=== PATIENT | female | born 1960 | race Caucasian/White ===

== ENCOUNTER 2017-06-20 20:17 | Observation (INO) ==
[2017-06-20 21:14] LABS: Basophils # 0.1 K/mcL (0.0-0.2); Basophils % 0.5 %; Eosinophils # 0.1 K/mcL (0.0-0.6); Eosinophils % 0.5 %; Hematocrit 42.8 % (35.3-44.9); Hemoglobin 14.2 g/dL (11.5-15.4); Immature Granulocytes % 0.2 % (0-4); Lymphocytes # 1.8 K/mcL (0.6-4.6); Lymphocytes % 13.9 %; Mean Corpuscular HGB Conc 33.2 g/dL (31.6-35.5); Mean Corpuscular Hemoglobin 29.8 pg (28.0-33.3); Mean Corpuscular Volume 89.7 fL (83.0-100.0); Mean Platelet Volume 9.9 fL (9.4-12.4); Monocytes # 0.7 K/mcL (0.0-1.3); Monocytes % 5.5 %; Neutrophils # 10.2 K/mcL (1.6-8.9); Platelet Count 221 K/mcL (140-400); Red Blood Count 4.77 M/mcL (3.82-4.97); Red Cell Distribution Width 12.8 % (11.5-14.5); Segmented Neutrophils % 79.4 %
[2017-06-20 21:26] LABS: BUN/Creatinine Ratio 18 (6-26); Blood Urea Nitrogen 16 mg/dL (7-20); Calcium 9.7 mg/dL (8.6-10.8); Carbon Dioxide 27 mEq/L (19-29); Chloride 106 mEq/L (98-109); Glucose 120 mg/dL (70-99); Osmolality,Calculated 294 (280-300); Potassium 3.9 mEq/L (3.5-4.5); Sodium 141 mEq/L (136-145); eGFR For African Americans > 60 (> 60); eGFR For Non-African Americans > 60 (> 60)
--- NOTE | 2017-06-20 23:46 | Emergency Department Note ---
Disposition Clinical Impression: Pre-syncope Disposition: Admitted As Inpatient Condition: Good Referrals: NONE,PCP [Primary Care Provider] - Forms: ED Satisfaction Letter Time of Disposition: 04:01 Dizziness HPI - General Chief Complaint: ED Dizziness Stated Complaint: dizziness/lightheaded Time Seen by Provider: 06/20/17 20:51 Source: patient Limitations: no limitations Nursing Notes Reviewed: Yes Vital Signs Reviewed: Yes - History of Present Illness Pt Subjective Complaint: lightheadedness Onset (ago): hour(s) Time: 15:00 Timing: sudden onset Description: lightheadedness (similar to standing up too fast) History of similar episodes: No History of trauma: No Improves with: nothing Worsens with: nothing Associated symptoms: Reports: chills (few hours later), vision changes (blurry vision lasting 20min started few hours later), palpitations (few hours later). Denies: ataxia, chest pain, confusion, diaphoresis, fever, rash, shortness of breath, weakness - Related Data Allergies Allergy/AdvReac Type Severity Reaction Status Date / Time No Known Allergies Allergy Verified 06/20/17 20:21 All systems ED: reviewed and negative except as stated. Constitutional: Denies: fever, chills Eyes: Reports: as per HPI. Denies: eye discharge ENT ED: Denies: throat pain Cardiovascular: Reports: as per HPI. Denies: dyspnea on exertion, syncope Respiratory: Reports: as per HPI. Denies: cough, wheezes Gastrointestinal: Denies: abdominal pain, nausea, vomiting, diarrhea, constipation Genitourinary: Denies: dysuria Musculoskeletal: Denies: back pain Integumentary: Denies: rash Neurological: Reports: headache Psychiatric: Denies: anxiety Endocrine: Denies: fatigue Hematological/Lymphatic: Denies: easy bleeding, lymphadenopathy Allergic/Immunologic: Denies: facial swelling Past Medical History - Past Medical History Medical history: Reports: no medical history Psychiatric history: Reports: no psych history - Social History Smoking Status: Never smoker Smokeless Tobacco Status: No Alcohol use: Reports: none Drug use: Reports: none Physical Exam - General Limitations: no limitations General appearance: alert, in no apparent distress - Head Head exam: normocephalic - Eye Eye exam: Present: EOMI. Absent: conjunctival injection - ENT ENT exam: normal oropharynx, mucous membranes moist - Expanded ENT Exam External ear exam: Present: normal external inspection. Absent: mastoid tenderness TM/Canal: Hemotympanum: Negative, Erythema: Negative, Bulging: Negative, Effusion: Negative, Perforation: Negative, Loss of Landmarks: Negative, Foreign body: Negative, Cerumen impaction: Left TM, Canal discharge: Negative, Canal tenderness: Negative Nose exam: negative: rhinorrhea Teeth exam: Present: normal inspection Throat exam: Present: normal inspection - Neck Neck exam: Present: normal inspection, full ROM - Chest Chest inspection: Present: normal inspection. Absent: symmetric chest wall rise - Respiratory Respiratory exam: Present: normal lung sounds bilaterally. Absent: respiratory distress - Cardiovascular Cardiovascular exam: Present: regular rate, normal rhythm, normal heart sounds - Abdominal Exam Abdominal exam: Present: soft, Non-Tender. Absent: tenderness - Extremities Exam Extremities exam: Present: normal inspection, full ROM, normal capillary refill - Back Exam Back exam: Present: full ROM - Neurological Exam Neurological exam: Present: alert, oriented X3, CN II-XII intact, normal gait, motor sensory deficit, reflexes normal - Expanded Neurological Exam Patient oriented to: Present: person, place, time Speech: Present: fluid speech Cranial nerves: EOM function (II, III, IV, ): Normal, facial sensation (V): Normal, facial palsy (VII): Normal, gag reflex (IX): Normal, spinal accessory function (XI): Normal, tongue deviation (XII): Normal Cerebellar function: finger to nose: Normal, heel to pedraza: Normal Cerebellar function: normal gait, Romberg normal Motor strength - LUE: 5/5 Motor strength - RUE: 5/5 Motor strength - LLE: 5/5 Motor strength - RLE: 5/5 Sensory exam upper extremity: light touch: Normal, pin prick: Normal Sensory exam lower extremity: light touch: Normal, pin prick: Normal Coma Scale Eye Opening: Spontaneous Coma Scale Motor Response: Obeys Commands Coma Scale Verbal Response: Oriented Coma Scale Total: 15 - Psychiatric Psychiatric exam: Present: normal affect, normal mood - Skin Skin exam: Present: warm, dry, intact. Absent: rash, cyanosis, diaphoresis Course Course Narrative: Patient is a 57-year-old female presents with some lightheadedness. Nursing notes indicate complaint of dizziness. Patient describes symptoms as lightheadedness sensation of as if he wanting to pass out, or if he stood up too quickly. She denies any disequilibrium, balance, room spinning, vertigo. 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 Symptoms continued when she got home. At home she started getting chills, felt a fast heart rate, and also had blurry vision which lasted approximately 20 minutes. She states her symptoms had continued until approximately one hour prior to entering her exam room which would have been while she was waiting for room in the waiting room in the department, an approximate duration 8 hours. She does mention that she has a headache gradual in onset that she states is from stress, similar to previous headaches, started while waiting for room. She states that her symptoms did not worsen with movement of her head, she denies any tinnitus, weakness, numbness, tingling, paresis, nausea, vomiting, slurred speech, facial changes. She is coming by her son who states that she has been acting normal. She did have an EKG, chest x-ray and initial lab work ordered as protocol orders prior to her exam room. These appear to be unremarkable. Patient seen and examined. No gross focal neurological deficits. No dizzyness. No nystagmus. Normal gait. No concerning signs for stroke or TIA. Alert and oriented 3. - Reevaluation(s) Reevaluation #1: Workup unremarkable. I did discuss patient with attending Dr. Dial, who agreed to see patient, and agreed with admission for presyncope with palpitations, cardio evaluation, and/or observation. Time: 00:58 Reevaluation #2: Pt discussed with hospitalist, Dr. Suazo, who had requested CT head non contrast , and for a call back with the results, to discuss patient further prior to accepting patient. This was discussed with patient who at this time has declined CT head. Time: 02:31 Reevaluation #3: Discussed patient with Dr. Suazo again, specifically patient's declining head CT. He reemphasizes importance of head CT for duration of neurological symptoms , or alternatively he feels patient can not be accepted. I Did speak to patient regarding their recommendations as did Dr. Dial. At this time patient is agreeable for CT scan. We will await results of CT, and per request of hospitalists contact him again for admission request. Time: 03:07 Additional Reevaluation(s): @03:54 I discussed results of CT of head with Dr. Suazo, as well as recreation for admission for presyncope. He accepted the patient. Vital Signs Temperature 97.9 F 06/20/17 20:19 Pulse Rate 77 06/20/17 20:19 Respiratory Rate 18 06/20/17 20:19 Blood Pressure 184/90 06/20/17 20:19 O2 Sat by Pulse Oximetry 97 06/20/17 20:19 Temperature 97.9 F 06/20/17 20:19 Pulse Rate 69 06/21/17 03:45 Respiratory Rate 16 06/21/17 03:45 Blood Pressure 157/83 06/21/17 03:45 O2 Sat by Pulse Oximetry 98 06/21/17 03:45 Oxygen Delivery Oxygen Delivery Room Air Dizziness - Lab Data Lab results reviewed: Yes I reviewed the patient's lab results. Result diagrams: 06/20/17 21:07 06/20/17 21:07 Lab Results 06/20/17 06/20/17 06/20/17 Range/Units 21:07 21:07 21:07 WBC 12.8 H (4.3-11.1) K/mcL RBC 4.77 (3.82-4.97) M/mcL Hgb 14.2 (11.5-15.4) g/dL Hct 42.8 (35.3-44.9) % MCV 89.7 (83.0-100.0) fL MCH 29.8 (28.0-33.3) pg MCHC 33.2 (31.6-35.5) g/dL RDW 12.8 (11.5-14.5) % Plt Count 221 (140-400) K/mcL MPV 9.9 (9.4-12.4) fL Immature Gran % 0.2 (0-4) % Seg Neutrophils % 79.4 % Lymphocytes % 13.9 % Monocytes % 5.5 % Eosinophils % 0.5 % Basophils % 0.5 % Neutrophils # 10.2 H (1.6-8.9) K/mcL Lymphocytes # 1.8 (0.6-4.6) K/mcL Monocytes # 0.7 (0.0-1.3) K/mcL Eosinophils # 0.1 (0.0-0.6) K/mcL Basophils # 0.1 (0.0-0.2) K/mcL Sodium 141 (136-145) mEq/L Potassium 3.9 (3.5-4.5) mEq/L Chloride 106 (98-109) mEq/L Carbon Dioxide 27 (19-29) mEq/L BUN 16 (7-20) mg/dL Creatinine 0.87 (0.57-1.11) mg/dL Est GFR ( Amer) > 60 (> 60) Est GFR (Non-Af Amer) > 60 (> 60) BUN/Creatinine Ratio 18 (6-26) Glucose 120 H (70-99) mg/dL Calculated Osmolality 294 (280-300) Calcium 9.7 (8.6-10.8) mg/dL Troponin I 0.00 (0-0.03) ng/mL TSH 6.264 H (0.350-4.840) mcIU/mL Urine Color (Yellow) Urine Clarity (Clear) Urine pH (5.0-8.0) pH Units Ur Specific [place] (1.010-1.025) Urine Protein (Neg-Trace) mg/dL Urine Glucose (UA) (Normal) mg/dL Urine Ketones (Negative) mg/dL Urine Blood (Negative) Urine Nitrite (Negative) Urine Bilirubin (Negative) Urine Urobilinogen (Normal) mg/dL Ur Leukocyte Esterase (Negative) Ur Culture Indicated? (NO) 06/21/17 Range/Units 00:33 WBC (4.3-11.1) K/mcL RBC (3.82-4.97) M/mcL Hgb (11.5-15.4) g/dL Hct (35.3-44.9) % MCV (83.0-100.0) fL MCH (28.0-33.3) pg MCHC (31.6-35.5) g/dL RDW (11.5-14.5) % Plt Count (140-400) K/mcL MPV (9.4-12.4) fL Immature Gran % (0-4) % Seg Neutrophils % % Lymphocytes % % Monocytes % % Eosinophils % % Basophils % % Neutrophils # (1.6-8.9) K/mcL Lymphocytes # (0.6-4.6) K/mcL Monocytes # (0.0-1.3) K/mcL Eosinophils # (0.0-0.6) K/mcL Basophils # (0.0-0.2) K/mcL Sodium (136-145) mEq/L Potassium (3.5-4.5) mEq/L Chloride (98-109) mEq/L Carbon Dioxide (19-29) mEq/L BUN (7-20) mg/dL Creatinine (0.57-1.11) mg/dL Est GFR ( Amer) (> 60) Est GFR (Non-Af Amer) (> 60) BUN/Creatinine Ratio (6-26) Glucose (70-99) mg/dL Calculated Osmolality (280-300) Calcium (8.6-10.8) mg/dL Troponin I (0-0.03) ng/mL TSH (0.350-4.840) mcIU/mL Urine Color Yellow (Yellow) Urine Clarity Clear (Clear) Urine pH 7.0 (5.0-8.0) pH Units Ur Specific [place] 1.014 (1.010-1.025) Urine Protein Negative (Neg-Trace) mg/dL Urine Glucose (UA) Normal (Normal) mg/dL Urine Ketones Negative (Negative) mg/dL Urine Blood Negative (Negative) Urine Nitrite Negative (Negative) Urine Bilirubin Negative (Negative) Urine Urobilinogen Normal (Normal) mg/dL Ur Leukocyte Esterase Negative (Negative) Ur Culture Indicated? NO (NO) - Radiology Data Radiology results reviewed: Yes I reviewed the patient's radiology results. - EKG Data EKG attestation: Yes I reviewed and interpreted this EKG. EKG results narrative: Sinus rhythm with sinus arrhythmia, ventricular rate 65, DC interval 157, QRS duration 96, QT/QTc 384/395, significant ST depression or elevation Attestation Statement - Attestation Attestation: I, Ferny Dial DO have provided [id number] time during the care of this patient. Detailed review the presentation, symptoms, medical history were discussed and reviewed with the mid-level provider Raúl Almeida PA-C/[employer]. Medical intervention labs and imaging studies were reviewed in detail. See full documentation of physical exam and course of care in the mid-level provider 's note. I agree with the determined course of care, medical interventio,n and disposition put forth by the mid-level provider. See below documentation for changes or alterations in documentation. 57-year-old female presents emergency room for near syncopal event today. She denies any headache or proceeding symptoms. She has a history of intermittent palpitations of unknown etiology. Denies any fevers or chills nausea vomiting or diarrhea. Denies any headache or vision change at this time. Currently she has no symptoms and does not have any dizziness or resting on the bed. Neurologic evaluation is completely benign. Head is atraumatic pupils are equal round and reactive intraocular muscles are intact. She has no reproducible nystagmus or dizziness on examination. Patient has stable laboratory workup including EKG and imaging. Patient will be admitted for near syncopal event. Patient is resting comfortable. See detailed documentation of physical exam, medical intervention, medical decision-making and disposition and the resident physician's note
[2017-06-21 01:07] LABS: Bilirubin,Urine Negative (Negative); Blood,Urine Negative (Negative); Clarity,Urine Clear (Clear); Color,Urine Yellow (Yellow); Glucose,Urine (UA) Normal (Normal); Ketones,Urine Negative (Negative); Leukocyte Esterase,Urine Negative (Negative); Nitrite,Urine Negative (Negative); Protein,Urine Negative (Neg-Trace); Specific Gravity,Urine 1.014 (1.010-1.025); Urobilinogen,Urine Normal (Normal)
[2017-06-21] MEDS ORDERED: Ibuprofen 600 MG TABLET PO ONE (01:47)
[2017-06-21 02:01] LABS: Thyroid Stimulating Hormone 6.264 mcIU/mL (0.350-4.840)
--- NOTE | 2017-06-21 08:29 | Internal Med History&Physical ---
Date of Encounter: 06/21/17 Time of Encounter: 08:10 Assessment and Plan (1) Pre-syncope Current visit: Yes Status: Acute Currently resolved. 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 Labs and EKG CT head showed no acute abnormality. Monitor vitals closely and start Telemetry monitoring. Consider MRI brain if symptoms persist or recur. (2) Essential hypertension Current visit: Yes Status: Chronic likely has ?undiagnosed HTN. BP is controlled with no meds; will start low dose Norvasc and monitor closely. Internal Medicine - H&P: HPI Chief complaint: Dizziness Admitted From: Emergency Dept Plans for Post Hospital Care: Home History of present illness: Ms. Santos is a 57 year old female with no significant past medical history, presents with c/o- "head feeling fuzzy". She say it is difficult to explain but she just did not feel right in her head. No overt confusion or disorientation per patient; she does have dizziness and near syncope that began about 4PM yesterday and last ed until about 10PM, while she was in the ER. Her symptoms spontaneously resolved. No associated vomiting, chest pain, cough, dyspnea, urinary complaints. No fever/chills. SHe did have some nausea and 5-6 episodes of watery diarrhea last evening, which was self-limited. No sick contacts at home or work, she does work as a emotional support teacher. No focal weakness, paresthesias, dysphagia, slurred speech. Past Med Surg Social Fam HX - Past Medical History Medical history: no medical history Psychiatric history: no psych history - Past Surgical History Surgical History: appendectomy, other (tonsillectomy) - Social History Smoking Status: Never smoker Smokeless Tobacco Status: No Alcohol use: none Drug use: none Occupational status: employed Current living situation: Home, With Family Activity Level: Independent ambulation Recent Out of Country Travel Within the Last 8 Weeks: No Exposure or Possible Exposure to Illness During Travel: No - Family History Mother Hx Family Cardiac Disorders: Yes (HTN, HLD, DC) Hx Family Cancer: Yes (Lung) Father Hx Family Cancer: Yes (Kidney carcinoma) Internal Medicine - H&P: Meds No Known Home Drugs 06/21/17 [History] 3 Allergy/AdvReac Type Severity Reaction Status Date / Time No Known Allergies Allergy Verified 06/20/17 20:21 All Systems PM: A 10-system review of systems was performed and is negative for pertinent findings except as documented above in the HPI. - Constitutional Constitutional: weakness, no chills, no fever(s), no night sweats - EENT Eyes: no change in vision, no discharge, no pain, no photophobia Ears: no ear discharge, no ear pain, no tinnitus Nose, mouth and throat: no dysphagia, no nasal discharge, no neck pain, no sore throat - Cardiovascular Cardiovascular ROS IM: lightheadedness, no chest pain, no diaphoresis, no dyspnea, no palpitations, no syncope - Respiratory Respiratory: no cough, no dyspnea, no wheezing, no excessive phlegm production - Gastrointestinal Gastrointestinal: diarrhea, no abdominal pain, no hematemesis, no hematochezia, no melena, no nausea, no vomiting - Genitourinary Genitourinary: no change in urinary stream, no dysuria, no flank pain, no hematuria - Musculoskeletal Musculoskeletal ROS IM: no numbness, no tingling - Integumentary Integumentary IM: no rash, no unusual bruising - Neurological Neurological ROS: no confusion, no convulsions, no focal weakness, no numbness, no tingling, no tremor(s) - Hematologic/Lymphatic Hematologic/Lymphatic: no easy bruising - Constitutional Vitals: Temp Pulse Resp BP Pulse Ox 97.9 F 89 20 129/74 96 06/21/17 07:10 06/21/17 07:10 06/21/17 07:10 06/21/17 07:10 06/21/17 07:10 General appearance: Present: A&O X 3, answers questions appropriately - Respiratory Respiratory exam: Present: CTAB. Absent: accessory muscle use, rales, rhonchi, wheezes - Cardiovascular Cardiovascular exam: Present: RRR, +S1, +S2. Absent: diastolic murmur, gallop, rubs, systolic murmur - GI/Abdominal GI/Abdominal exam: Present: normal bowel sounds, soft, no peritoneal signs. Absent: distended, tenderness - Extremities Exam Extremities exam: Present: full ROM, warm, radial pulses palpable and symmetrical. Absent: calf tenderness, cyanotic, pedal edema - Neurological Exam Neurological exam: Present: CN II-XII intact, oriented X3, no focal deficits. Absent: pronater drift, facial droop, speech deficit - Skin Skin exam: Present: dry, intact Internal Med - H&P Results - Labs CBC & Chem 7: 06/20/17 21:07 06/20/17 21:07 - EKG Data -: EKG Interpreted by Myself EKG shows normal: sinus rhythm (sinus arrhythmia) Rate: normal (no ischemic changes)
[2017-06-21] MEDS: *HR* Heparin 5,000 UNIT/ML VIAL SQ SCH ×3 (08:48→23:21)
[2017-06-21] MEDS: amLODIPine 5 MG TABLET PO SCH (08:49)
[2017-06-21] MEDS: Acetaminophen 325 MG TABLET PO PRN (12:20)
--- NOTE | 2017-06-21 16:18 | Electrocardiograph Report ---
[place] [id number] Test Date: 2017-06-20 Pat Name: Katherine Santos Department: 102 Room: 3A35 Gender: F Hall Clerk: : 1960 Requested By: Vlad Rodriguez Order Number: [id number] Reading MD: Abelardo Chan Measurements Intervals [place] Rate: 65 P: 53 MT: 157 QRS: 47 QRSD: 96 T: 42 QT: 384 QTc: 395 Interpretive Statements SINUS RHYTHM WITH SINUS ARRHYTHMIA POSSIBLE RIGHT VENTRICULAR CONDUCTION DELAY MODERATE ST DEPRESSION Electronically Signed On 06-21-2017 16:16:42 EDT by Abelardo Chan
[2017-06-22] MEDS: Acetaminophen 325 MG TABLET PO PRN ×3 (03:46→21:38)
[2017-06-22 05:17] LABS: Basophils # 0.1 K/mcL (0.0-0.2); Basophils % 1.2 %; Eosinophils # 0.1 K/mcL (0.0-0.6); Eosinophils % 2.2 %; Hematocrit 40.5 % (35.3-44.9); Hemoglobin 13.5 g/dL (11.5-15.4); Immature Granulocytes % 0.2 % (0-4); Lymphocytes # 2.5 K/mcL (0.6-4.6); Lymphocytes % 42.1 %; Mean Corpuscular HGB Conc 33.3 g/dL (31.6-35.5); Mean Corpuscular Hemoglobin 29.4 pg (28.0-33.3); Mean Corpuscular Volume 88.2 fL (83.0-100.0); Mean Platelet Volume 10.3 fL (9.4-12.4); Monocytes # 0.4 K/mcL (0.0-1.3); Monocytes % 6.8 %; Neutrophils # 2.9 K/mcL (1.6-8.9); Platelet Count 213 K/mcL (140-400); Red Blood Count 4.59 M/mcL (3.82-4.97); Red Cell Distribution Width 13.1 % (11.5-14.5); Segmented Neutrophils % 47.5 %
[2017-06-22 05:40] LABS: BUN/Creatinine Ratio 17 (6-26); Blood Urea Nitrogen 14 mg/dL (7-20); Calcium 8.8 mg/dL (8.6-10.8); Carbon Dioxide 28 mEq/L (19-29); Chloride 106 mEq/L (98-109); Glucose 94 mg/dL (70-99); Osmolality,Calculated 292 (280-300); Potassium 3.8 mEq/L (3.5-4.5); Sodium 141 mEq/L (136-145); eGFR For African Americans > 60 (> 60); eGFR For Non-African Americans > 60 (> 60)
[2017-06-22] MEDS: *HR* Heparin 5,000 UNIT/ML VIAL SQ SCH ×4 (06:36→21:38)
[2017-06-22] MEDS: amLODIPine 5 MG TABLET PO SCH (06:54)
[2017-06-22] MEDS: Ondansetron 4 MG/2 ML VIAL IVP PRN ×2 (06:55→15:17)
[2017-06-22] MEDS ORDERED: *HR* Morphine 2 MG/ML SYRINGE IVP PRN (10:28)
[2017-06-22] MEDS: *HR* OxyCODONE/APAP 5/325 TABLET PO PRN (10:34)
--- NOTE | 2017-06-22 12:01 | Discharge Summary ---
Date of Encounter: 06/22/17 Time of Encounter: 11:56 - Discharge Diagnosis (1) Pre-syncope Priority: Primary Status: Acute (2) Essential hypertension Priority: Primary Status: Chronic (3) Headache Priority: Secondary Status: Acute Qualifiers: Headache type: unspecified Headache chronicity pattern: acute headache Qualified Code(s): R51 - Headache - Discharge Medications Prescriptions: amLODIPine [Norvasc] 5 mg PO DAILY #30 tablet Naproxen 500 mg PO BID PRN #20 tablet PRN Reason: Headache SUMAtriptan succinate [Imitrex] 25 mg PO DAILY PRN #7 tablet PRN Reason: Headache Home Medications: Naproxen 500 mg PO BID PRN #20 tablet 06/22/17 [Rx] SUMAtriptan succinate [Imitrex] 25 mg PO DAILY PRN #7 tablet 06/22/17 [Rx] amLODIPine [Norvasc] 5 mg PO DAILY #30 tablet 06/22/17 [Rx] Allergies/Adverse Reactions: 3 Allergy/AdvReac Type Severity Reaction Status Date / Time No Known Allergies Allergy Verified 06/20/17 20:21 Date of admission: 06/21/17 03:59 Primary care physician: PCP NONE - Patient Status Disposition: Home, Self-Care Condition: Good Overall status at discharge: patient is back to baseline - Discharge Instructions Follow Up With: NONE,PCP [Primary Care Provider] - - Diet and Activity Activity: increase activity as tolerated Diet: low salt diet Hospital course: Ms. Santos is a 57 year old female with no significant past medical history, presents with c/o- "head feeling fuzzy". She say it is difficult to explain but she just did not feel right in her head. No overt confusion or disorientation per patient; she does have dizziness and near syncope that began about 4PM yesterday and last ed until about 10PM, while she was in the ER. Her symptoms spontaneously resolved. No associated vomiting, chest pain, cough, dyspnea, urinary complaints. No fever/chills. She did have some nausea and 5-6 episodes of watery diarrhea 2 days ago, which was self-resolved. She was admitted in the hospital and placed her on radiation monitor. She did have mild EKG changes with ST depression in inferior leads and sinus arrythamia. 2 D Echo showed - Time Spent with Patient Total time spent providing and/or coordinating discharge services: - Constitutional Vitals: Temp Pulse Resp BP Pulse Ox 97.9 F 71 16 144/83 95 06/22/17 11:25 06/22/17 11:25 06/22/17 11:25 06/22/17 11:25 06/22/17 11:25 General appearance: Present: A&O X 3, answers questions appropriately - Head Head exam: Present: atraumatic, normal inspection - Neck Neck exam general surgery: Present: supple - Respiratory Respiratory exam: Present: CTAB. Absent: accessory muscle use, rales, rhonchi, wheezes - Cardiovascular Cardiovascular exam: Present: RRR, +S1, +S2. Absent: diastolic murmur, gallop, rubs, systolic murmur - GI/Abdominal GI/Abdominal exam: Present: normal bowel sounds, soft, no peritoneal signs. Absent: distended, tenderness - Extremities Exam Extremities exam: Present: warm, radial pulses palpable and symmetrical. Absent : calf tenderness, cyanotic, pedal edema - Neurological Exam Neurological exam: Present: alert, oriented X3 - Psychiatric Psychiatric exam: Present: normal affect, normal mood
--- NOTE | 2017-06-22 12:57 | Cardiology Consult Note ---
<Oskar Azul - Last Filed: 06/22/17 12:49> Date of Encounter: 06/22/17 Time of Encounter: 12:49 Assessment and Plan (1) Abnormal EKG Current Visit: Yes Status: Acute EKG reviewed. Shows sinus arrhythmia. There is ST depression noted in the inferiolateral leads. She c/o ongoing dyspnea on exertion and brief episode of chest pain. Troponin negative. Cardiac risk factors include HTN, significant family history ( brother with PCI at age 44), and obesity. No previous cardiac work-up Discussed with Dr. Stern. Pharmacologic stress test is recommended for further evaluation. (2) Palpitations Current Visit: Yes Status: Acute C/o palpitations/ heart racing intermittently. 24 hour telemetry shows SR with PAC. Avg HR 66 bpm. Fastest HR was 101 bpm. Sinus tachycardia. No VT. No concerning arrhythmias seen. Recommend holter monitor at discharge. (3) Essential hypertension Current Visit: Yes Status: Chronic Uncontrolled hypertension. Recommend increasing norvasc to 10 mg daily. Low sodium diet. Discussion w patient/family: The assessment and plan as outlined above was discussed with the patient and/or family members who expressed understanding and agreement. All questions were answered. Thank you for involving us in the care of your patient. Please call with any questions. History of Present Illness Consult date: 06/22/17 Requesting physician: Flores Beal Consult reason: Abnormal EKG Chief complaint: Headache, nausea, SOB, chest pain History of present illness: Ms. Santos is a 57 year old female with a past medical history of hypertension , hypothyroidism, and migraines who presents with the c/o feeling funny in her head, brief left sided sharp chest discomfort and nausea. She also c/o dyspnea on exertion for three weeks. Admits to intermittent palpitations . She sometimes feels her heart racing while lying in bed at night. Cardiology consulted for abnormal EKG. She was found to have sinus arrhythmia and inferior and lateral ST depression. There is no previous EKG to compare. B/p elevated up to 184/90. Troponin is negative. CT of the head showed no acute finding. She denies previous cardiac history or work-up. Past Med Surg Social Fam HX - Past Medical History Attestation: Yes The following information was validated with the patient. Medical history: hypertension, migraine, thyroid disease Psychiatric history: no psych history - Past Surgical History Surgical History: appendectomy, other (tonsillectomy) - Social History Smoking Status: Never smoker Smokeless Tobacco Status: No Alcohol use: none Drug use: none - Family History Mother Hx Family Cardiac Disorders: Yes (HTN, HLD, IL) Hx Family Cancer: Yes (Lung) Father Hx Family Cancer: Yes (Kidney carcinoma) Medications and Allergies Levothyroxine [Synthroid] 25 mcg PO 0630 #30 tablet 06/22/17 [Rx] Naproxen 500 mg PO BID PRN #20 tablet 06/22/17 [Rx] SUMAtriptan succinate [Imitrex] 25 mg PO DAILY PRN #7 tablet 06/22/17 [Rx] amLODIPine [Norvasc] 5 mg PO DAILY #30 tablet 06/22/17 [Rx] 3 Allergy/AdvReac Type Severity Reaction Status Date / Time No Known Allergies Allergy Verified 06/20/17 20:21 All Systems Review: A 10-system review of systems was performed and is negative for pertinent findings except as documented above in the HPI. Physical Examination Vital Signs, Last 4 Hours Temp Pulse Resp BP Pulse Ox 06/22/17 11:25 97.9 F 71 16 144/83 95 General: Conversant, No Apparent Distress HEENT: Atraumatic, Normocephaly, Mucus Membranes Moist Neck: No JVD, Normal carotid pulses Cardiac: Reg Rate and Rhythm, Normal S1 and S2, No Murmur Lungs: Normal Breath Sounds, No Wheeze, Rales, Rhonchi Neuro: Alert and responsive, No focal deficits noted Abdomen: Soft, Non-Tender Skin: No rashes noted on visualized skin Musculoskeletal: No Chest Wall Tenderness Extremities: No Clubbing, No Cyanosis, No Edema, Normal Pulses Results 06/22/17 04:15 06/22/17 04:15 Lab Results 06/22/17 06/22/17 04:15 04:15 WBC 6.0 D Hgb 13.5 Hct 40.5 Plt Count 213 Sodium 141 Potassium 3.8 Chloride 106 Carbon Dioxide 28 BUN 14 Creatinine 0.81 Glucose 94 Calcium 8.8 Magnesium 2.0 - EKG Interpretation EKG results cardiology: personally reviewed Consult Discharge Plan - Plan Referrals: NONE,PCP [Primary Care Provider] - Prescriptions: amLODIPine [Norvasc] 5 mg PO DAILY #30 tablet Levothyroxine [Synthroid] 25 mcg PO 0630 #30 tablet Naproxen 500 mg PO BID PRN #20 tablet PRN Reason: Headache SUMAtriptan succinate [Imitrex] 25 mg PO DAILY PRN #7 tablet PRN Reason: Headache <Thalia Stern - Last Filed: 06/22/17 13:24> Date of Encounter: 06/22/17 - Attending Attestation I have personally performed a face to face evaluation on this patient. I have reviewed and agree with the care plan. History and Exam by me shows: 57 YOF with strong family h/o CAD, presents with worsening RODRIGUES, EKG abnormalities (ST depressions inferolaterally) and palpitations. She describes rapid heart rate with lightheadedness, nausea but no Vominting or TLOC. She is anxious and currently is complaining of ongoing nausea and headach. CT head was unremarkable. Euvolemic on exam and unremarkable. With abnormal EKG and RODRIGUES worsening over last few weeks will proceed with chemical stress test and ECHO. Will also obtaine an event monitor as an OP for palpitations. Assessment and Plan Discussion w patient/family: The assessment and plan as outlined above was discussed with the patient and/or family members who expressed understanding and agreement. All questions were answered. Thank you for involving us in the care of your patient. Please call with any questions. History of Present Illness History of present illness: Ms. Santos is a 57 year old female All Systems Review: A 10-system review of systems was performed and is negative for pertinent findings except as documented above in the HPI. Physical Examination Vital Signs, Last 4 Hours Temp Pulse Resp BP Pulse Ox 06/22/17 11:25 97.9 F 71 16 144/83 95 Results 06/22/17 04:15 06/22/17 04:15 Lab Results 06/22/17 06/22/17 04:15 04:15 WBC 6.0 D Hgb 13.5 Hct 40.5 Plt Count 213 Sodium 141 Potassium 3.8 Chloride 106 Carbon Dioxide 28 BUN 14 Creatinine 0.81 Glucose 94 Calcium 8.8 Magnesium 2.0
[2017-06-22] MEDS ORDERED: amLODIPine 5 MG TABLET PO ONE (13:30)
--- NOTE | 2017-06-22 14:18 | Internal Med Progress Note ---
Date of Encounter: 06/22/17 Time of Encounter: 11:40 - Assessment and plan (1) Abnormal EKG Current Visit: Yes Status: Acute Assessment and plan: She did have abnormal EKG with moderate ST depression noticed in Inferior leads , which slightly improved with repeated EKG now She did mention about having sharp left sided chest pain for few minutes y/d her initial troponin was negative She remained CP free Ordered stat 2 D Echo Also consulted Cardiology who suggested stress test in AM cont on tele for now (2) Chest pain Current Visit: Yes Status: Acute Assessment and plan: see above Qualifiers: Qualified Code(s): R07.9 - Chest pain, unspecified (3) Essential hypertension Current Visit: Yes Status: Acute Assessment and plan: New onset fairly controlled will inc Norvasc to 10mg (4) Headache Current Visit: Yes Status: Acute Assessment and plan: concerned for migraine will give narcotics PRN also will give 1 dose Imitrex too Qualifiers: Headache type: unspecified Headache chronicity pattern: acute headache Qualified Code(s): R51 - Headache (5) Hypothyroidism (acquired) Current Visit: Yes Status: Acute Assessment and plan: TSH was slightly elevated Will f/u on free T4 and T3 levels Since pt has symptoms - lethargic / palpitations / lightheadedness, will start her on Levothyroxine 25mcg daily recommend to f/u with PCP as an out pt - Subjective Interval history: Ms. Santos is a 57 year old female with no significant past medical history, presents with c/o- "head feeling fuzzy". She say it is difficult to explain but she just did not feel right in her head. No overt confusion or disorientation per patient; she does have dizziness and near syncope that began about 4PM yesterday and lasted until about 10PM, while she was in the ER. Her symptoms spontaneously resolved. No associated vomiting, cough, dyspnea, urinary complaints. No fever/chills. She did have some nausea and 5-6 episodes of watery diarrhea last evening, which was self-limited. No sick contacts at home or work, she does work as a ec teacher. She also c/o some sharp chest pain too y/d. She also c/o on and off palpitations for a while and feeling lethargic from last one week. She denied any more dizziness, however she started having headache this morning - Constitutional Vitals: Temp Pulse Resp BP Pulse Ox 97.9 F 71 16 144/83 95 06/22/17 11:25 06/22/17 11:25 06/22/17 11:25 06/22/17 11:25 06/22/17 11:25 General appearance: Present: A&O X 3, answers questions appropriately - Head Head exam: Present: atraumatic, normal inspection - Respiratory Respiratory exam: Present: decreased breath sounds, wheezes. Absent: rales, respiratory distress, rhonchi - Cardiovascular Cardiovascular exam: Present: RRR, +S1, +S2. Absent: systolic murmur - GI/Abdominal GI/Abdominal exam: Present: normal bowel sounds, soft. Absent: rebound, rigid, tenderness - Extremities Exam Extremities exam: Absent: calf tenderness, pedal edema, tenderness - Back Exam Back exam: Absent: CVA tenderness (L), CVA tenderness (R) - Neurological Exam Neurological exam: Present: alert, CN II-XII intact, oriented X3, no focal deficits, strengths equal and symetr throughout. Absent: facial droop, speech deficit - Psychiatric Psychiatric exam: Present: normal affect, normal mood Internal Medicine: Result - Labs CBC & Chem 7: 06/22/17 04:15 06/22/17 04:15 Labs: Short CBC 06/22/17 Range/Units 04:15 WBC 6.0 D (4.3-11.1) K/mcL Hgb 13.5 (11.5-15.4) g/dL Hct 40.5 (35.3-44.9) % Plt Count 213 (140-400) K/mcL Neutrophils # 2.9 (1.6-8.9) K/mcL BMP 06/22/17 04:15 Sodium 141 Potassium 3.8 Chloride 106 Carbon Dioxide 28 BUN 14 Creatinine 0.81 Glucose 94 Calcium 8.8 Consult Discharge Plan - Plan Referrals: NONE,PCP [Primary Care Provider] - Prescriptions: amLODIPine [Norvasc] 5 mg PO DAILY #30 tablet Levothyroxine [Synthroid] 25 mcg PO 0630 #30 tablet Naproxen 500 mg PO BID PRN #20 tablet PRN Reason: Headache SUMAtriptan succinate [Imitrex] 25 mg PO DAILY PRN #7 tablet PRN Reason: Headache
[2017-06-22] MEDS ORDERED: SUMAtriptan succinate 50 MG TABLET PO ONE (14:34)
[2017-06-22] MEDS: Aspirin Enteric Coated 81 MG Tablet PO SCH (15:14)
[2017-06-22] MEDS ORDERED: 0.9 % Sodium Chloride 1,000 ML IVC SCH (15:15)
[2017-06-22 15:32] LABS: Chol/HDL Ratio 2.9 (0-4.9)
[2017-06-22 15:52] LABS: Triiodothyronine (T3) Free 2.5 pg/mL (1.71-3.71)
--- NOTE | 2017-06-22 16:54 | Electrocardiograph Report ---
[place] [address] Test Date: 2017-06-22 Pat Name: Katherine Santos Department: 115 Room: 3A35 Gender: F Landscape Designer: : 1960 Requested By: Flores Beal Order Number: [id number] Reading MD: Vicki Jiménez Measurements Intervals [place] Rate: 54 P: 45 VA: 159 QRS: 22 QRSD: 92 T: 37 QT: 414 QTc: 401 Interpretive Statements SINUS BRADYCARDIA MINIMAL ST DEPRESSION Electronically Signed On 06-22-2017 16:52:38 EDT by Vicki Jiménez
[2017-06-23] MEDS ORDERED: Regadenoson 0.4 MG/5 ML SYRINGE IVP ONE (05:40)
[2017-06-23] MEDS: *HR* Heparin 5,000 UNIT/ML VIAL SQ SCH ×3 (05:49→21:55)
[2017-06-23] MEDS: Levothyroxine 25 MCG TABLET PO SCH ×2 (05:52→10:30)
[2017-06-23] MEDS: amLODIPine 5 MG TABLET PO SCH (10:30)
[2017-06-23] MEDS: *HR* OxyCODONE/APAP 5/325 TABLET PO PRN (10:30)
[2017-06-23] MEDS: Aspirin Enteric Coated 81 MG Tablet PO SCH (10:30)
--- NOTE | 2017-06-23 12:24 | Internal Med Progress Note ---
Date of Encounter: 06/23/17 Time of Encounter: 09:35 - Assessment and plan (1) Essential hypertension Current Visit: Yes Status: Acute Assessment and plan: New onset Continue Norvasc Uncontrolled, hold BB till after stress test Start Lisinopril Continue to monitor (2) Palpitations Current Visit: Yes Status: Acute Assessment and plan: Holter monitor at discharge (3) Hypothyroidism (acquired) Current Visit: Yes Status: Acute Assessment and plan: TSH was slightly elevated Free T3/T4 WNL Since pt has symptoms - lethargic / palpitations / lightheadedness, was started on Levothyroxine 25mcg daily recommend to f/u with PCP as an out pt Continue current dose of synthroid (4) Abnormal EKG Current Visit: Yes Status: Acute Assessment and plan: She did have abnormal EKG with moderate ST depression noticed in Inferior leads , which slightly improved with repeated EKG now ECHO noted for mild LVDD, possibly from uncontrolled HTN Two day stress test is ending No CP, no SOB, no angina equivalent cardiology is following (5) Morbid obesity with BMI of 40.0-44.9, adult Current Visit: Yes Status: Chronic Assessment and plan: Lifestyle modifications - Subjective Interval history: Seen and evaluated at beside Just returned from stress test Awaiting 2nd part tomorrow No new complains - Constitutional Vitals: Temp Pulse Resp BP Pulse Ox 97.6 F 68 18 151/75 99 06/23/17 11:00 06/23/17 11:00 06/23/17 11:00 06/23/17 11:00 06/23/17 11:00 General appearance: Present: A&O X 3, morbidly obese, pleasant, no acute distress, answers questions appropriately - Head Head exam: Present: atraumatic, normocephalic - Eye Eye exam: Present: PERRL, conjuntiva pink, sclera anicteric Pupils: Present: PERRL - Neck Neck exam general surgery: Present: supple, trachea midline. Absent: lymphadenopathy - Respiratory Respiratory exam: Present: CTAB. Absent: accessory muscle use, rales, rhonchi, wheezes - Cardiovascular Cardiovascular exam: Present: RRR, +S1, +S2. Absent: diastolic murmur, gallop, rubs, systolic murmur - GI/Abdominal GI/Abdominal exam: Present: normal bowel sounds, soft, no peritoneal signs. Absent: distended, tenderness - Extremities Exam Extremities exam: Present: warm, radial pulses palpable and symmetrical. Absent : calf tenderness, cyanotic, pedal edema - Neurological Exam Neurological exam: Present: alert, CN II-XII intact, normal gait, oriented X3, no focal deficits. Absent: pronater drift, facial droop, speech deficit - Skin Skin exam: Present: dry, intact Internal Medicine: Result - Labs CBC & Chem 7: 06/22/17 04:15 06/22/17 04:15 Labs: Cardiac Enzymes 06/23/17 Range/Units 05:18 Troponin I 0.00 (0-0.03) ng/mL - Impressions Impressions Echocardiogram 06/22/17 12:01 Impressions: LVEF 60-65%. Mild left ventricular diastolic dysfunction. Normal right ventricular structure and function. Mild mitral regurgitation. No pulmonary hypertension. Left Ventricular Wall Motion: Rest Echo Findings All wall segments showed normal motion. Findings: Study Quality * Technically adequate exam. ECG Findings * Normal sinus rhythm. Left Ventricle * Normal LV chamber size, wall thickness and function. * Mild left ventricular diastolic dysfunction. * LVEF 60-65%. Right Ventricle * Normal right ventricular structure and function. Left Atrium * Normal left atrial size. Right Atrium * Normal right atrial size. Aortic Valve * No aortic regurgitation. * No aortic stenosis. * Aortic valve not well visualized. Mitral Valve * Normal mitral valve structure. * No mitral stenosis. * Mild mitral regurgitation. Tricuspid Valve * Tricuspid valve not well visualized. * No tricuspid regurgitation. * Estimated RA pressure is 8 mmHg. * Estimated RVSP is 27 mmHg. * No pulmonary hypertension. Pulmonic Valve * Pulmonic valve is not well visualized. * No pulmonic stenosis. * Trace pulmonic regurgitation. Pulmonary Artery * Pulmonary artery not well visualized. Aorta * Normally sized aortic root. Pericardium * There is no pericardial effusion present. Interatrial Septum * No evidence of PFO by color Doppler. IVC * The IVC is not dilated. * < 50% respiratory change. Consult Discharge Plan - Plan Referrals: NONE,PCP [Primary Care Provider] - Prescriptions: amLODIPine [Norvasc] 5 mg PO DAILY #30 tablet Levothyroxine [Synthroid] 25 mcg PO 0630 #30 tablet Naproxen 500 mg PO BID PRN #20 tablet PRN Reason: Headache SUMAtriptan succinate [Imitrex] 25 mg PO DAILY PRN #7 tablet PRN Reason: Headache
--- NOTE | 2017-06-23 13:55 | Cardiology Progress Note ---
Date of Encounter: 06/23/17 Time of Encounter: 13:52 Assessment and Plan (1) Abnormal EKG Current Visit: Yes Status: Acute EKG reviewed. Shows sinus arrhythmia. There is ST depression noted in the inferiolateral leads. She c/o ongoing dyspnea on exertion and brief episode of chest pain. Troponin negative x2. Cardiac risk factors include HTN, significant family history ( brother with PCI at age 44), and obesity. No previous cardiac work-up TTE-LVEF 60-65%. Mild left ventricular diastolic dysfunction. Normal right ventricular structure and function. Mild mitral regurgitation. No pulmonary hypertension. Two day stress test is pending. We will continue to follow with you. (2) Palpitations Current Visit: Yes Status: Acute C/o palpitations/ heart racing intermittently. 24 hour telemetry shows SR with PAC. Avg HR 71 bpm. Fastest HR was 98 bpm. No VT. No concerning arrhythmias seen. Recommend holter monitor at discharge. (3) Essential hypertension Current Visit: Yes Status: Acute Uncontrolled hypertension. Norvasc increased to 10 mg daily. Will start beta- cleve for continued elevated blood pressure and c/o palpitations. Low sodium diet. Discussion w patient/family: The assessment and plan as outlined above was discussed with the patient and/or family members who expressed understanding and agreement. All questions were answered. Thank you for involving us in the care of your patient. Please call with any questions. Subjective Principal diagnosis: Chest pain, abnormal EKG Objective Vital Signs, Last 4 Hours Temp Pulse Resp BP Pulse Ox 06/23/17 11:00 97.6 F 68 18 151/75 99 General: Conversant, No Apparent Distress HEENT: Atraumatic, Normocephaly, Mucus Membranes Moist Neck: No JVD, Normal carotid pulses Cardiac: Reg Rate and Rhythm, Normal S1 and S2, No Murmur Lungs: Normal Breath Sounds, No Wheeze, Rales, Rhonchi Neuro: Alert and responsive, No focal deficits noted Abdomen: Soft, Non-Tender Skin: No rashes noted on visualized skin Musculoskeletal: No Chest Wall Tenderness Extremities: No Clubbing, No Cyanosis, No Edema, Normal Pulses Results 06/22/17 04:15 06/22/17 04:15 Lab Results 06/23/17 05:18 Troponin I 0.00 Consult Discharge Plan - Plan Referrals: NONE,PCP [Primary Care Provider] - Prescriptions: amLODIPine [Norvasc] 5 mg PO DAILY #30 tablet Levothyroxine [Synthroid] 25 mcg PO 0630 #30 tablet Naproxen 500 mg PO BID PRN #20 tablet PRN Reason: Headache SUMAtriptan succinate [Imitrex] 25 mg PO DAILY PRN #7 tablet PRN Reason: Headache
[2017-06-23] MEDS ORDERED: Lisinopril 20 MG TABLET PO SCH (15:00)
[2017-06-23] MEDS: Acetaminophen 325 MG TABLET PO PRN (19:36)
[2017-06-24] MEDS: *HR* Heparin 5,000 UNIT/ML VIAL SQ SCH (05:36)
[2017-06-24] MEDS: Levothyroxine 25 MCG TABLET PO SCH ×2 (05:36→09:01)
[2017-06-24] MEDS: amLODIPine 5 MG TABLET PO SCH (09:01)
[2017-06-24] MEDS: Aspirin Enteric Coated 81 MG Tablet PO SCH (09:01)
[2017-06-24] MEDS: Acetaminophen 325 MG TABLET PO PRN (09:01)
--- NOTE | 2017-06-24 09:21 | Discharge Summary ---
Date of Encounter: 06/24/17 Time of Encounter: 09:20 - Discharge Diagnosis (1) Essential hypertension Priority: Secondary Status: Acute (2) Palpitations Priority: Secondary Status: Acute (3) Hypothyroidism (acquired) Priority: Secondary Status: Acute (4) Abnormal EKG Priority: Primary Status: Resolved (5) Morbid obesity with BMI of 40.0-44.9, adult Priority: Secondary Status: Chronic - Discharge Medications Prescriptions: amLODIPine [Norvasc] 5 mg PO DAILY #30 tablet Carvedilol [Coreg] 3.125 mg PO BIDWM #60 tablet Levothyroxine [Synthroid] 25 mcg PO 0630 #30 tablet Levothyroxine [Synthroid] 25 mcg PO DAILY@0630 #30 tablet Naproxen 500 mg PO BID PRN #20 tablet PRN Reason: Headache SUMAtriptan succinate [Imitrex] 25 mg PO DAILY PRN #7 tablet PRN Reason: Headache Home Medications: Levothyroxine [Synthroid] 25 mcg PO 0630 #30 tablet 06/22/17 [Rx] Naproxen 500 mg PO BID PRN #20 tablet 06/22/17 [Rx] SUMAtriptan succinate [Imitrex] 25 mg PO DAILY PRN #7 tablet 06/22/17 [Rx] amLODIPine [Norvasc] 5 mg PO DAILY #30 tablet 06/22/17 [Rx] Carvedilol [Coreg] 3.125 mg PO BIDWM #60 tablet 06/24/17 [Rx] Levothyroxine [Synthroid] 25 mcg PO DAILY@0630 #30 tablet 06/24/17 [Rx] Allergies/Adverse Reactions: 3 Allergy/AdvReac Type Severity Reaction Status Date / Time No Known Allergies Allergy Verified 06/20/17 20:21 Procedures/tests Complete & Pending: Procedures Performed prior 72 hours Category Date Time Status NM jeanne perf SPECT multi [NM] Routine Exams 06/23/17 00:01 Taken EKG [ECG 12 lead ECG] [ECG] Stat Y 06/22/17 12:01 Completed EV echocardiogram Stat Y 06/22/17 12:01 Completed SP pharm nuclear stress Stat Y 06/23/17 07:00 Completed Date of admission: 06/21/17 03:59 Primary care physician: PCP NONE Consults: 06/22/17 12:16 Consult to Cardiology [CONS] Routine Comment: Consulting Provider: Cardiology Abigail Reason for Consult: abnormal EKG Call Completed: Yes Discharging clinician: Kleber Burton Anticipated date of discharge: 06/24/17 - Patient Status Disposition: Home, Self-Care Condition: Good - Ambulatory Orders Ambulatory Orders: ECG holter monitor [ECG] Time Frame: 3 Days, Facility: [facility], Location: Cardiopulmonary Svc - Discharge Instructions Instructions: Naproxen (By mouth), Levothyroxine (By mouth), Amlodipine (By mouth), Carvedilol (By mouth), Sumatriptan (By mouth), Chest Pain (DC), Hypothyroidism (DC), Chronic Hypertension (DC) Follow Up With: Johnna Kelley INFORMATION SECURITY SPECIALIST [Advanced Practice Nurse] - 07/12/17 9:00 am (A new patient packet will come in the mail, please fill out and bring to your appt. You will also need to bring your insurance care, photo ID, and any medications you are on. If you need to cancel please give a 24 hour notice. Thank you) Forms: Work/School Release - Diet and Activity Activity: resume usual activities as tolerated Diet: low fat, low cholesterol, low salt diet Interval History: See below Hospital course: Ms. Santos is a 57 year old female admitted to observation following complains of fatigue, headache and palpitations Incidental finding of elevated TSH (along with symptoms of hypothyroidism) prompted starting synthroid 25mcg, well tolerated Admitting EKG had some moderate ST segment changes, which resolved on subsequent EKGs Patient had uncontrolled blood pressure on admission and required dual therapy for control Stress test done shows n ischemia or infarct, EF is 70%, ECHO is WNL with mild LVDD possibly from Morbid Obesity and Uncontrolled HTN She is seen and evaluated this morning, in no form of distress, headache and palpitations have resolved Cardiology input appreciated Patient is stable to be discharged home on current medications She is educated about following up with PCP for repeat TSH and adjustment of Levothyroixine Lifestyle modification encouraged for MOrbid Obesity Flu vaccine recommended - Time Spent with Patient Total time spent providing and/or coordinating discharge services: Greater than 30 minutes - Constitutional Vitals: Temp Pulse Resp BP Pulse Ox 98.1 F 59 16 164/84 100 06/24/17 08:00 06/24/17 08:00 06/24/17 08:00 06/24/17 08:00 06/24/17 08:00 General appearance: Present: A&O X 3, morbidly obese, pleasant, no acute distress, answers questions appropriately - Head Head exam: Present: atraumatic, normocephalic - Eye Eye exam: Present: PERRL, conjuntiva pink, sclera anicteric Pupils: Present: PERRL - Neck Neck exam general surgery: Present: supple, trachea midline. Absent: lymphadenopathy - Respiratory Respiratory exam: Present: CTAB. Absent: accessory muscle use, rales, rhonchi, wheezes - Cardiovascular Cardiovascular exam: Present: RRR, +S1, +S2. Absent: diastolic murmur, gallop, rubs, systolic murmur - GI/Abdominal GI/Abdominal exam: Present: normal bowel sounds, soft, no peritoneal signs. Absent: distended, tenderness - Extremities Exam Extremities exam: Present: warm, radial pulses palpable and symmetrical. Absent : calf tenderness, cyanotic, pedal edema - Neurological Exam Neurological exam: Present: alert, CN II-XII intact, oriented X3, no focal deficits. Absent: pronater drift, facial droop, speech deficit - Skin Skin exam: Present: dry, intact
[2017-06-24 12:08] VITALS: BP 143/76
[2017-06-24] MEDS ORDERED: FLUARIX QUAD 2017-18 36MOS UP/PF 0.5 ML SYRINGE IM ONE (13:03)
--- NOTE | 2017-06-24 13:10 | Cardiology Progress Note ---
Date of Encounter: 06/24/17 Time of Encounter: 13:08 Assessment and Plan (1) Abnormal EKG Current Visit: Yes Status: Acute EKG reviewed. Shows sinus arrhythmia. There was borderline ST depression noted in the inferiolateral leads. She c/o ongoing dyspnea on exertion and brief episode of chest pain prior to admission. Troponin negative x2. EKG changes in the setting of elevated blood pressure. Cardiac risk factors include HTN, significant family history ( brother with PCI at age 44), and obesity. TTE-LVEF 60-65%. Mild left ventricular diastolic dysfunction. Normal right ventricular structure and function. Mild mitral regurgitation. No pulmonary hypertension. Two day stress test was negative for ischemia. Continue agressive cardiac risk factor modification. Follow with cardiology PRN. Patient encouraged to establish with a PCP. (2) Palpitations Current Visit: Yes Status: Acute C/o palpitations/ heart racing intermittently. After further discussion, palpitations are rare, occuring once every 2-3 mo at night. Telemetry review shows NSR with occasional PVC. No tachy arrhythmias seen. Will hold of on holter monitor. Instructed to consider avoiding caffeine after 6 pm. She says she sometimes drinks coffee in the evening. low dose beta-cleve started for HTN and palpitations. (3) Essential hypertension Current Visit: Yes Status: Acute Continue norvasc and carvedilol. Discussion w patient/family: The assessment and plan as outlined above was discussed with the patient and/or family members who expressed understanding and agreement. All questions were answered. Thank you for involving us in the care of your patient. Please call with any questions. Subjective Principal diagnosis: Chest pain, abnormal EKG Interval history: Denies chest pain or SOB. Denies palpitations. Objective Vital Signs, Last 4 Hours Temp Pulse Resp BP Pulse Ox 06/24/17 12:00 97.9 F 67 16 143/76 96 General: Conversant, No Apparent Distress HEENT: Atraumatic, Normocephaly, Mucus Membranes Moist Neck: No JVD, Normal carotid pulses Cardiac: Reg Rate and Rhythm, Normal S1 and S2, No Murmur Lungs: Normal Breath Sounds, No Wheeze, Rales, Rhonchi Neuro: Alert and responsive, No focal deficits noted Abdomen: Soft, Non-Tender Skin: No rashes noted on visualized skin Musculoskeletal: No Chest Wall Tenderness Extremities: No Clubbing, No Cyanosis, No Edema, Normal Pulses Results 06/22/17 04:15 06/22/17 04:15 - Imaging and Cardiology Stress Test: report reviewed - EKG Interpretation EKG results cardiology: personally reviewed Consult Discharge Plan - Plan Instructions: Naproxen (By mouth), Levothyroxine (By mouth), Amlodipine (By mouth), Carvedilol (By mouth), Sumatriptan (By mouth), Chest Pain (DC), Hypothyroidism (DC), Chronic Hypertension (DC) Referrals: Johnna Kelley, HEALTHCARE ASSOCIATE [Advanced Practice Nurse] - 07/12/17 9:00 am (A new patient packet will come in the mail, please fill out and bring to your appt. You will also need to bring your insurance care, photo ID, and any medications you are on. If you need to cancel please give a 24 hour notice. Thank you) Prescriptions: amLODIPine [Norvasc] 5 mg PO DAILY #30 tablet Carvedilol [Coreg] 3.125 mg PO BIDWM #60 tablet Levothyroxine [Synthroid] 25 mcg PO 0630 #30 tablet Levothyroxine [Synthroid] 25 mcg PO DAILY@0630 #30 tablet Naproxen 500 mg PO BID PRN #20 tablet PRN Reason: Headache SUMAtriptan succinate [Imitrex] 25 mg PO DAILY PRN #7 tablet PRN Reason: Headache
== END 2017-06-24 13:22 | disposition home or self-care (01) ==
LOC: 3ANU 20:17 → EMEROO 20:17 → SUATTDRO 06-21 03:59 → 3ANU 06-21 04:19
PROVIDERS: ADMIT Internal Medicine; ATTEND Internal Medicine